=== PATIENT | female | born 1995 | race Two or more races ===

== ENCOUNTER → 2017-06-09 | Emergency (ER) | payer OTHER ==
[~2017-06-09] VITALS: Ht 154.9 cm; Wt 51.7 kg
[~2017-06-09] MED LIST: VITAMIN B-COMP1 EAC2; ZOFRAN4 MG
== END | disposition home or self-care (01) ==
LOC: ER 13:48
DX: J06.9 Acute upper respiratory infection, unspecified (principal)

== ENCOUNTER 2017-06-15 20:03 | Emergency (ER) | payer OTHER ==
[~2017-06-15] VITALS: Ht 157.5 cm; Wt 49.0 kg
[2017-06-15] MEDS ORDERED: PRENATABS FA T1 EACH (20:37)
[2017-06-16] MEDS ORDERED: INTESTINEX680 M1 PO (05:43)
== END 2017-06-16 06:00 | disposition home or self-care (01) ==
LOC: ER 20:03
DX: K52.9 Noninfective gastroenteritis and colitis, unspecified (principal)

== ENCOUNTER 2017-06-16 15:14 | Inpatient (IN) | payer OTHER ==
[~2017-06-16] VITALS: Ht 154.9 cm; Wt 48.1 kg
[~2017-06-16 15:14] MED LIST changes: +INTESTINEX680 M1 PO; +PRENATABS FA T1 EACH
== END 2017-06-18 10:21 | disposition home or self-care (01) | DRG 781 ==
LOC: LDR 15:14 → OB/GYN 15:14
PROC: 4A1HXCZ Monitoring of Products of Conception, Cardiac Rate, External Approach (ICD-10-PCS; principal; 2017-06-16)
DX: O21.1 Hyperemesis gravidarum with metabolic disturbance (principal); Z3A.09 9 weeks gestation of pregnancy

== ENCOUNTER 2017-07-22 09:01 | Emergency (ER) | payer OTHER ==
[~2017-07-22] VITALS: Ht 154.9 cm; Wt 51.3 kg
[2017-07-22] MEDS ORDERED: PEPCID AC20 MG PO (13:37)
== END 2017-07-22 13:48 | disposition home or self-care (01) ==
LOC: ER 09:01
DX: Z34.02 Encounter for supervision of normal first pregnancy, second trimester (principal); K52.89 Other specified noninfective gastroenteritis and colitis; E86.0 Dehydration; B34.9 Viral infection, unspecified

== ENCOUNTER 2017-08-13 09:40 | Emergency (ER) | payer OTHER ==
[~2017-08-13] VITALS: Ht 154.9 cm; Wt 52.6 kg
[~2017-08-13 09:40] MED LIST changes: +PEPCID AC20 MG PO
[2017-08-13] MEDS ORDERED: ZITHROMAX TRI-500 MG PO (10:17)
== END 2017-08-13 10:23 | disposition home or self-care (01) ==
LOC: ER 09:40
DX: Z34.02 Encounter for supervision of normal first pregnancy, second trimester (principal); J06.9 Acute upper respiratory infection, unspecified

== ENCOUNTER 2017-08-13 20:28 | Emergency (ER) | payer OTHER ==
[~2017-08-13] VITALS: Ht 154.9 cm; Wt 52.6 kg
[~2017-08-13 20:28] MED LIST changes: +ZITHROMAX TRI-500 MG PO
== END 2017-08-14 04:12 ==
LOC: ER 20:28
DX: Z34.02 Encounter for supervision of normal first pregnancy, second trimester (principal); R10.31 Right lower quadrant pain

== ENCOUNTER → 2017-09-05 | Emergency (ER) | payer OTHER ==
[~2017-09-05] VITALS: Ht 154.9 cm; Wt 54.9 kg
[~2017-09-05] MED LIST changes: +MACROBID 100 M100 MG PO; +ZYRTEC10 MG PO
== END | disposition home or self-care (01) ==
LOC: ER 00:41
DX: Z34.02 Encounter for supervision of normal first pregnancy, second trimester (principal); R07.89 Other chest pain

== ENCOUNTER 2017-09-08 22:39 | Emergency (ER) | payer OTHER ==
[~2017-09-08] VITALS: Ht 157.5 cm; Wt 59.0 kg
[~2017-09-08 22:39] MED LIST changes: -MACROBID 100 M100 MG PO; -ZYRTEC10 MG PO
[2017-09-09] MEDS ORDERED: ZYRTEC10 MG PO (02:36)
[2017-09-09] MEDS ORDERED: MACROBID 100 M100 MG PO (02:36)
== END 2017-09-09 02:33 | disposition home or self-care (01) ==
LOC: ER 22:39
DX: O26.892 Other specified pregnancy related conditions, second trimester (principal); T78.49XA Other allergy, initial encounter; Z34.82 Encounter for supervision of other normal pregnancy, second trimester

== ENCOUNTER 2017-09-21 14:15 | Emergency (ER) | payer OTHER ==
[~2017-09-21] VITALS: Ht 154.9 cm; Wt 56.7 kg
[~2017-09-21 14:15] MED LIST changes: +MACROBID 100 M100 MG PO; +ZYRTEC10 MG PO
[2017-09-21] MEDS ORDERED: PRENATABS FA T1 EACH (14:24)
[2017-09-21] MEDS ORDERED: FOLIC ACID1 MG (14:24)
== END 2017-09-21 18:44 | disposition home or self-care (01) ==
LOC: ER 14:15
DX: O26.892 Other specified pregnancy related conditions, second trimester (principal); K52.9 Noninfective gastroenteritis and colitis, unspecified; Z34.01 Encounter for supervision of normal first pregnancy, first trimester

== ENCOUNTER 2017-10-18 01:05 | Emergency (ER) | payer OTHER ==
[~2017-10-18] VITALS: Ht 154.9 cm; Wt 58.1 kg
[~2017-10-18 01:05] MED LIST changes: +FOLIC ACID1 MG
== END 2017-10-18 12:35 ==
LOC: ER 01:05
DX: T63.411A Toxic effect of venom of centipedes and venomous millipedes, accidental (unintentional), initial encounter (principal); O26.892 Other specified pregnancy related conditions, second trimester; Z34.02 Encounter for supervision of normal first pregnancy, second trimester; Y92.89 Other specified places as the place of occurrence of the external cause

== ENCOUNTER 2017-11-15 02:51 | Outpatient (CLI) | payer OTHER ==
[2017-11-16] MEDS ORDERED: ZANTAC300 MG PO (15:15)
== END 2017-11-15 09:46 | disposition home or self-care (01) ==
LOC: OBS/DEL 02:51
DX: O26.893 Other specified pregnancy related conditions, third trimester (principal); K52.89 Other specified noninfective gastroenteritis and colitis; K21.9 Gastro-esophageal reflux disease without esophagitis; Z34.03 Encounter for supervision of normal first pregnancy, third trimester

== ENCOUNTER 2017-11-16 14:13 | Inpatient (IN) | payer OTHER ==
[~2017-11-16] VITALS: Ht 154.9 cm; Wt 60.3 kg
[2017-11-16] MEDS ORDERED: ZANTAC300 MG PO (15:15)
== END 2017-11-20 10:58 | disposition home or self-care (01) | DRG 392 ==
LOC: OB/GYN 14:13 → LDR 14:13 → OB/GYN 11-17 10:35
PROC: BW40ZZZ Ultrasonography of Abdomen (ICD-10-PCS; principal; 2017-11-17)
PROC: 4A1HXCZ Monitoring of Products of Conception, Cardiac Rate, External Approach (ICD-10-PCS; 2017-11-17)
DX: K52.89 Other specified noninfective gastroenteritis and colitis (principal); E86.0 Dehydration; R10.31 Right lower quadrant pain

== ENCOUNTER 2017-12-03 01:51 | Outpatient (CLI) | payer OTHER ==
[~2017-12-03 01:51] MED LIST changes: +ZANTAC300 MG PO
== END 2017-12-03 10:38 | disposition home or self-care (01) ==
LOC: OBS/DEL 01:51
DX: O60.03 Preterm labor without delivery, third trimester (principal); Z34.03 Encounter for supervision of normal first pregnancy, third trimester

== ENCOUNTER 2017-12-14 11:12 | Inpatient (IN) | payer OTHER ==
[~2017-12-14] VITALS: Ht 154.9 cm; Wt 2.7 kg
== END 2017-12-28 14:05 | disposition home or self-care (01) | DRG 766 ==
LOC: LDR 12-24 23:16 → OB/GYN 12-24 23:16 → O/R 12-25 07:31 → OB/GYN 12-25 11:40
PROC: 10D00Z1 Extraction of Products of Conception, Low, Open Approach (ICD-10-PCS; principal; 2017-12-25)
PROC: 4A033R1 Measurement of Arterial Saturation, Peripheral, Percutaneous Approach (ICD-10-PCS; 2017-12-25)
PROC: 4A1HXCZ Monitoring of Products of Conception, Cardiac Rate, External Approach (ICD-10-PCS; 2017-12-25)
DX: O41.1230 Chorioamnionitis, third trimester, not applicable or unspecified (principal); O76 Abnormality in fetal heart rate and rhythm complicating labor and delivery; Z37.0 Single live birth; Z3A.37 37 weeks gestation of pregnancy

== ENCOUNTER 2017-12-24 17:48 | Outpatient (CLI) | payer OTHER | END 2017-12-25 07:30 | disposition still patient (30) | LOC: OBS/DEL 17:48 | DX: O47.1 False labor at or after 37 completed weeks of gestation (principal); Z34.03 Encounter for supervision of normal first pregnancy, third trimester ==